=== PATIENT | female | born 1960 | race Caucasian/White ===

== ENCOUNTER 2023-08-01 08:52 | Outpatient (CLI) | payer BC, SELFPAY ==
--- NOTE | 2023-08-01 09:15 | FL_ITS ---
Final Report Patient: RUFUS GROSSMAN Facility:?[facility] Patient ID:?[id number] Site Patient ID:?[id number]. Site :?1960 Study:?XRay Hip Left INJECTION (DR HER TO READ)-08/01/2023 10:06:37 AM Ordering Physician:DANIS Final Report: Indication: Left hip pain Procedure : Informed consent was obtained. The site was marked. Time-out was performed. The skin of the left hip was cleansed with ChloraPrep. A sterile drape was placed. 8 cc of 1 percent lidocaine was administered for superficial anesthesia. Subsequently a 22 gauge spinal needle was introduced into the left hip joint under intermittent fluoroscopic guidance. Injection of 2 cc nonionic Omnipaque 240 contrast confirmed intra-articular location. Subsequently 11 cc of dilute gadolinium were injected. The needle was removed and hemostasis achieved with direct pressure. A dressing was placed. The patient tolerated the procedure well without immediate complication and was immediately sent to MRI for imaging. Total fluoroscopy time 17 seconds. Impression: Successful fluoroscopically guided left hip arthrogram for MRI. Dictated by Sunil Her MD @ 08/01/2023 10:11:13 AM (Electronic Signature)
--- NOTE | 2023-08-01 10:15 | MR_ITS ---
[address] [address] Phone:?[phone] Fax:?[phone] Referring Physician Information: Jay Malcolm M.D. [address] [facility] [address] Phone:?[phone] Fax:?[phone] Patient:Esperanza Falcon D.O.B:?1960 Sex:?Female Phone:?[phone] [facility] MRN:?[id number] Exam Date:?08/01/2023 EXAM: MR ARTHROGRAM OF THE LEFT HIP CLINICAL: Left hip pain. COMPARISONS: None available. TECHNICAL:Multiplanar multisequence MRI of the left hip was obtained. SEDATION: None CONTRAST: Intra-articular gadolinium based contrast. FINDINGS: Hip joint: Contrast in the left hip joint reflects successful arthrography. No convincing intra-articular bodies. No significant chondral loss. Labrum: Evaluation is limited on the axial oblique sequence secondary to artifact. Suspect ill-defined fraying/tearing of the anterosuperior labrum as visualized. No perilabral cyst formation. Proximal femur: No marrow edema, fracture or osteonecrosis. No convincing femoral cam morphology. Acetabulum: No significant subchondral marrow edema, cystic change or fracture. Version: No convincing retroversion. Coverage: Left lateral center edge (CE) angle measures approximately 37? (normal 25?-39?), midline coronal series 7 image 16. Ligamentum teres: Intact and unremarkable. Pelvis osseous structures: No suspicious marrow signal alteration or fracture line. There are mild changes of arthrosis involving the inferior right sacroiliac joint. Left sacroiliac joint appears unremarkable. There is mild marrow edema involving the left pubis about the pubic symphysis. Myotendinous structures: Gluteus abductors: There is mild tendinosis and mild partial tearing of the distal left gluteus medius tendon. Distal left gluteus minimus tendon is unremarkable. Adductors: No demonstrable tendinopathy or strain/tear. Hamstrings: There is advanced tendinosis with high-grade partial tearing involving the proximal left hamstring tendons at the ischial tuberosity attachment. Partial tearing also involves the proximal right hamstring tendons at the ischial tuberosity attachment. Flexors: Intact iliopsoas and rectus femoris, without strain/tear. External rotators: Intact, without demonstrable ischiofemoral impingement. Gluteal aponeurotic fascia and IT band: Unremarkable. Bursae: No significant trochanteric or iliopsoas bursitis. Intrapelvic structures: Although evaluation of the intrapelvic structures is limited on this exam, no convincing pelvic mass is identified as visualized. IMPRESSION: 1. Advanced tendinosis with high-grade partial tearing involving the proximal left hamstring tendons at the ischial tuberosity attachment. Partial tearing is also seen to involve the proximal right hamstring tendons at the ischial tuberosity attachment. 2. Mild tendinosis/partial tearing of the distal left gluteus medius tendon. 3. Suspect ill-defined fraying/tearing of the anterosuperior labrum. 4. Mild changes of arthrosis involving the inferior right sacroiliac joint. 5. Mild marrow edema involving the left pubis about the pubic symphysis likely reflecting mild reactive changes of arthrosis. JCZ Electronically signed on 08/01/2023 1:39:00 PM by Angelito Walters D.O.
== END 2023-08-01 08:53 | disposition home or self-care (01) ==
LOC: RAD 08:55
PROVIDERS: PCP Family Medicine; Visit Provider Family Medicine
DX: M25.552 Pain in left hip (principal); S76.012A Strain of muscle, fascia and tendon of left hip, initial encounter; S73.102A Unspecified sprain of left hip, initial encounter; M16.12 Unilateral primary osteoarthritis, left hip; M25.852 Other specified joint disorders, left hip
CPT/HCPCS: 27093; 73525; 73722; 77002; A9575; Q9966

== ENCOUNTER 2023-11-22 16:00 | Outpatient (RCR) | payer BC, SELFPAY | END 2024-01-14 09:08 | disposition home or self-care (01) | PROVIDERS: PCP Family Medicine; Visit Provider Family Medicine | DX: M16.12 Unilateral primary osteoarthritis, left hip (principal); M25.852 Other specified joint disorders, left hip; M76.899 Other specified enthesopathies of unspecified lower limb, excluding foot; M76.02 Gluteal tendinitis, left hip; M25.552 Pain in left hip; G57.02 Lesion of sciatic nerve, left lower limb; M79.18 Myalgia, other site; Z51.89 Encounter for other specified aftercare | CPT/HCPCS: 97110; 97140; 97161 ==